=== PATIENT | female | born 1960 | race Hispanic/Latino ===

== ENCOUNTER 2024-09-12 18:03 | Emergency (ER) | payer OTHER, BC ==
[~2024-09-12] VITALS: Ht 149.9 cm; Wt 54.9 kg
--- NOTE | 2024-09-12 19:30 | HMCIMG ---
THORACIC SPINE RADIOGRAPHS - 2 VIEWS INDICATION: Back pain COMPARISON: None FINDINGS: No acute fracture or subluxation identified. Vertebral body heights and disc spaces are well-maintained. Multilevel mild anterior endplate osteophytic spurring. IMPRESSION: No acute fracture or subluxation noted.
--- NOTE | 2024-09-12 19:30 | HMCIMG ---
CERVICAL SPINE RADIOGRAPHS - 2-3 VIEWS INDICATION: Pain COMPARISON: None FINDINGS: AP, lateral, and odontoid views. Straightening of the normal lordosis may be related to overlying muscle spasm, underlying degenerative joint disease and/or patient positioning. No acute fracture or malalignment identified. Prevertebral soft tissues are not swollen. The atlanto-dens interval is within normal limits for patient's age. Spot view of the odontoid is without evidence for fracture. Vertebral body heights are within normal limits. Disc heights are well preserved. Multilevel mild anterior endplate osteophytic spurring. Mild facet disease at the C7-T1 level. Visible lung apices are clear. IMPRESSION: No acute fracture or subluxation identified.
--- NOTE | 2024-09-12 19:30 | HMCIMG ---
LUMBAR SPINE RADIOGRAPHS - 2-3 VIEWS INDICATION: Back pain COMPARISON: None FINDINGS: AP, lateral, and coned-down lateral views. Normal lordotic curvature of the lumbar spine is maintained. Extremely shallow lumbar levoscoliosis. Five nonrib-bearing lumbar vertebral bodies are noted. No acute fracture or subluxation identified. Chronic-appearing mild to moderate L1 vertebral body compression deformity. Remainder of the vertebral body heights are well-maintained. Multilevel mild anterior endplate osteophytic spurring. Disc spaces are well-preserved. IMPRESSION: Chronic-appearing mild to moderate L1 vertebral body compression deformity without subluxation or retropulsion. If patient has pain specifically at this level, MR imaging is recommended for further evaluation.
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
[2024-09-12 19:51] VITALS: BP 131/79; PULSE 84; RESP 18; TEMP 97.9; O2SAT 99
[2024-09-12] MEDS: acetaMINOPHEN 500 MG TABLET PO SCH (19:51)
== END 2024-09-12 20:13 | disposition home or self-care (01) ==
LOC: EDH 18:03
DX: M54.50 Low back pain, unspecified (principal); M54.6 Pain in thoracic spine; M54.2 Cervicalgia; M19.90 Unspecified osteoarthritis, unspecified site; Z88.8 Allergy status to other drugs, medicaments and biological substances; V63.0XXA Driver of heavy transport vehicle injured in collision with car, pick-up truck or van in nontraffic accident, initial encounter; Y93.89 Activity, other specified; Y92.488 Other paved roadways as the place of occurrence of the external cause; Y99.8 Other external cause status
CPT/HCPCS: 72040; 72072; 72100; 99284